=== PATIENT | male | born 1965 | race Caucasian/White ===

== ENCOUNTER 2025-08-06 13:20 | Emergency (ER) | payer BC, SELFPAY ==
[2025-08-06 13:23] VITALS: BP 165/96
[2025-08-06 13:37] LABS: Hematocrit 47.9 % (39.0-52.0); Hemoglobin 16.2 g/dL (13.0-18.0); Mean Corp Hgb Conc. 33.8 g/dL (33.0-37.0); Mean Corpuscular Volume 85.5 fL (80.0-94.0); Nucleated Red Blood Cells % 0 % (-); Platelet Count 270 10^3/uL (130-400); Red Cell Dist. Width 12.9 % (11.5-14.5)
[2025-08-06 13:58] LABS: ALT (SGPT) 17 U/L (0-50); AST (SGOT) 19 U/L (17-59); Albumin 4.9 g/dl (3.5-5.0); Alkaline Phosphatase 89 U/L (38-126); Blood Urea Nitrogen 9 mg/dl (9-20); Calcium 9.4 mg/dl (8.4-10.2); Carbon Dioxide 26 mmol/L (22-30); Chloride 102 mmol/L (98-107); Glucose 136 mg/dl (70-99); Potassium 3.9 mmol/L (3.5-5.1); Sodium 136 mmol/L (135-145); Total Protein 7.3 g/dl (6.3-8.2); eGFR > 60.00
--- NOTE | 2025-08-06 16:09 | ED.GENMED ---
History of Present Illness
General
Chief Complaint: Abdominal Pain
Source: patient
Exam Limitations: none
Time Seen by Provider: 08/06/25 16:04
History of Present Illness
History of Present Illness:
See MDM
Past History
Past History
ED Past Medical History: Other (Diverticulosis)
ED Past Surgical History: None
Social History
Tobacco: Non-smoker
Alcohol: None
Phy Exam
Physical Exam
Physical Exam:
See MDM
Course
Orders/Labs/Results
Orders:
Orders
08/06/25 13:28
CMP [Comprehensive Metabolic Panel] Urgent
Complete Blood Count/With Diff Urgent
08/06/25 16:08
CT Abd/pelvis W Iv Cont Urgent
Comment:
Reason For Exam: LLQ pain
08/06/25 16:24
Ketorolac [Toradol] 15 mg IV NOW STA
08/06/25 18:02
LevoFLOXacin [Levaquin] 500 mg PO NOW STA
MetroNIDAZOLE [Flagyl] 500 mg PO NOW STA
Abnormal Lab Results
08/06/25
13:28
WBC 13.1 H 10^3/uL
(4.8-10.8)
Abs Immat Gran (auto) 0.1 H 10^3/uL
(0-0.05)
Absolute Neuts (auto) 10.1 H 10^3/uL
(1.4-6.5)
Absolute Monos (auto) 1.0 H 10^3/uL
(0.1-0.6)
Neutrophils % 77.4 H %
(42.2-75.2)
Lymphocytes % 13.2 L %
(20.5-51.1)
Glucose 136 H mg/dl
(70-99)
08/06/25 13:28
08/06/25 13:28
Vital Signs
Initial and Last Documented VS:
Initial Vital Signs
Temp Pulse Resp BP Pulse Ox
98.1 F 97 20 165/96 99
08/06/25 13:23 08/06/25 13:23 08/06/25 13:23 08/06/25 13:23 08/06/25 13:23
Last Documented Vital Signs
Temp Pulse Resp BP Pulse Ox
98.1 F 97 20 165/96 99
08/06/25 13:23 08/06/25 13:23 08/06/25 13:23 08/06/25 13:23 08/06/25 16:11
MDM/Problems Addressed
Differential Diagnosis Includes:
Note:
CHIEF COMPLAINT(S)
Abdominal pain.
HISTORY OF PRESENT ILLNESS
The patient is a 60-year-old male with a history of diverticulosis diagnosed two years ago after a colonoscopy by Dr. Rodriguez. He presented with sudden onset lower left quadrant abdominal pain. He visited urgent care on Monday night and was
prescribed amoxicillin/clavulanate (Augmentin) for suspected diverticulitis. Despite 48 hours of antibiotic therapy, his symptoms worsened last night with cramping and diarrhea. He denies fever and urinary issues. The pain has changed and decreased
slightly since it started but remains tender.
PAST MEDICAL AND SURGICAL HISTORY
History of diverticulosis. The patient had a double hernia repair at .
PHYSICAL EXAM
General: Alert, no acute distress.
Skin: Warm, dry.
Head: Normocephalic, atraumatic
Neck: Appears supple, trachea midline.
Eyes, Ears, Nose, Mouth, and Throat: Moist mucous membranes
Cardiovascular: No signs of cyanosis
Respiratory: Respirations are non-labored.
Abdomen: Non-distended. Tenderness to left lower quadrant without localized rebound
Musculoskeletal: No deformities
Neurological: No focal neurological deficit observed.
Psychiatric: Cooperative, appropriate mood and affect.
PLAN
Obtain a computed tomography (CT) scan to evaluate for possible complications such as abscess formation or other differential diagnoses. Consider changing antibiotics to a stronger regimen based on CT findings.
DIFFERENTIAL DIAGNOSIS
- The Differential Diagnosis includes, in no particular order and is not limited to:
- Diverticulitis
- Inflammatory bowel disease
- Gastroenteritis
- Colon abscess
- Ischemic colitis
- Appendicitis (less likely given location)
- Colonic neoplasm with potential obstruction
- Renal colic
- Pyelonephritis
- Infectious colitis
EMERGENCY TREATMENTS ADMINISTERED
Patient was offered ketorolac for pain management, but he declined at the moment, though open to it if needed later.
MEDICAL DECISION MAKING
- Complexity of Data Reviewed: Chronic conditions affecting care include a history of diverticulosis. The differential diagnosis list reflects this.
- Data:
- Category 1: Order for CT scan to evaluate abdomen for diverticulitis or complications.
- Category 3: Discussed management and antibiotic use based on potential CT findings.
- Risk: Prescription medication management was discussed with a potential change in antibiotics depending on CT results.
DIAGNOSIS
- K57.32: Diverticulitis of large intestine without perforation or abscess without bleeding
SUMMARY OF ENCOUNTER
A 60-year-old male presented with sudden onset lower left quadrant abdominal pain. He was previously diagnosed with diverticulosis and was initially treated with amoxicillin/clavulanate for suspected diverticulitis at urgent care. The patients
symptoms worsened despite 48 hours of antibiotic therapy, and he experienced cramping and diarrhea. After reassessment, the patient remained well-appearing and non-toxic, with no complications from acute diverticulitis.
PLAN
Switch from amoxicillin/clavulanate to levofloxacin and metronidazole. Obtain a CT scan to assess for potential complications. Adjust antibiotics based on CT findings if necessary.
INDEPENDENT REVIEW OF LABS AND INTERPRETATION OF TESTS
My independent interpretation of a CT scan was considered to evaluate for possible complications related to acute diverticulitis.
FOLLOW-UP INSTRUCTIONS
The patient already has a follow-up appointment with colorectal surgery scheduled for this week.
MEDICATION RECONCILIATION
- Prescription for levofloxacin.
- Prescription for metronidazole.
MEDICAL DECISION MAKING
- Number and Complexity of Problems Addressed: Chronic conditions affecting care include diverticulosis. Differential diagnosis includes diverticulitis, inflammatory bowel disease, gastroenteritis, among others.
- Data:
- Category 1: Ordered a CT scan to evaluate potential complications.
- Category 3: Discussion regarding management of antibiotics and interpretation of potential CT findings.
- Risk: Prescription medication was prescribed (levofloxacin and metronidazole).
DIAGNOSIS
- K57.32: Diverticulitis of large intestine without perforation or abscess without bleeding.
*Pulse Oximetry
SaO2: 99
Oxygen Mode of Delivery: Room air
Patient hypoxic: no
*Critical Care Note
Total Time (30-74mins, 75-104mins- exclusive of procedures): Not Applicable
ED Attending Note
-
Portions of this chart may have been created with voice recognition software.� Occasional wrong word or��sound alike� substitutions may have occurred due to the inherent limitations of voice recognition software.
Discharge Plan
Departure
Patient Disposition: Home (Routine Discharge)
Date of Disposition: 08/06/25
Time of Disposition: 18:03
Patient with high blood pressure during this ER visit?: Yes
Discharge Problem:
Diverticulitis
Instructions: Diverticulitis (DC), BLOOD PRESSURE
Prescriptions:
New
metronidazole 500 mg Tablet
500 mg PO TID Qty: 21 0RF
levofloxacin 500 mg Tablet
500 mg PO DAILY Qty: 7 0RF
No Action
atorvastatin 40 MG tablet
40 mg PO QPM
lisinopril-hydrochlorothiazide 1 EACH tablet
1 ea PO QPM
omeprazole 20 MG tablet,delayed release (DR/EC)
20 mg PO .EVERY OTHER DAY
Centrum Tablet
1 tab PO DAILY
Nuvigil
125 mg PO DAILY PRN (Reason: sleep apnea)
Fish Oil
2 cap PO DAILY
sennosides [senna] 1 TABLET tablet
2 tab PO BID Qty: 0 0RF
acetaminophen 325 MG tablet
650 mg PO Q4HPRN PRN (Reason: pain) Qty: 0 0RF
aspirin 325 MG tablet,delayed release (DR/EC)
325 mg PO DAILY Qty: 0 0RF
docusate sodium 100 MG capsule
100 mg PO BID Qty: 0 0RF
oxycodone 5 MG tablet
1 - 2 tab PO Q4HPRN PRN (Reason: pain) Qty: 90 0RF
Referrals:
Camacho Walters PA-C [Family Provider, Family Practice]
Activity Restrictions/Additional Instructions:
Please return for any worsening symptoms.
You may return at any time if you have further concerns.
Please keep your appointment with Dr. Rodriguez. Since we are switching antibiotics, please stop the Augmentin.
Thank you for choosing [facility].
Interventions
Interventions:
*General Assessment Last Done: 08/06/25 13:23
GR-Tkypba-Isieecdolx Assessment Last Done: 08/06/25 16:15
Discharge Date and Time
Print Language: LUXEMBOURGER
[2025-08-06] MEDS: TORADOL 15 MG IV (16:29)
[2025-08-06] MEDS: FLAGYL 500 MG PO (18:13)
[2025-08-06] MEDS: LEVAQUIN 500 MG PO (18:13)
== END 2025-08-06 18:24 | disposition home or self-care (01) ==
LOC: EMR 13:20
PROVIDERS: Emergency Medicine; EMERGENCY PHYSICIAN Student in an Organized Health Care Education/Training Program; FAMILY PHYSICIAN Physician Assistant Medical
DX: K57.32 Diverticulitis of large intestine without perforation or abscess without bleeding (principal); Z98.890 Other specified postprocedural states
CPT/HCPCS: 96374; 99284; 74177; 80053; 85025; Q9967